=== PATIENT | male | born 1995 | race Asian ===

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

== ENCOUNTER 2018-11-09 13:01 | Emergency (ER) | payer OTHER ==
[2018-11-09] MEDS ORDERED: Silver Sulfadiazine 1%* 20 GM TOPICAL ONE (15:20)
[2018-11-09 16:10] VITALS: BP 129/63
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
== END 2018-11-09 15:54 | disposition home or self-care (01) ==
LOC: ED 13:01
DX: T23.231A Burn of second degree of multiple right fingers (nail), not including thumb, initial encounter (principal); X19.XXXA Contact with other heat and hot substances, initial encounter; Y92.9 Unspecified place or not applicable
CPT/HCPCS: 99282; A9270-GY

== ENCOUNTER 2018-11-22 22:06 | Emergency (ER) | payer OTHER ==
[2018-11-22] MEDS ORDERED: Ondansetron ODT TAB* 4 MG PO ONE (22:24)
[2018-11-22] MEDS ORDERED: NS 0.9% 1000 ML** 1,000 ML IV ONE (22:48)
[2018-11-22] MEDS ORDERED: Ondansetron INJ* 2 MG/ML VIAL IV ONE (23:04)
--- NOTE | 2018-11-22 23:46 | ED ---
Substance Abuse/Use - HPI Summary HPI Summary: Patient presents with alcohol intoxication nausea vomiting and headache. Friend 's of patient state patient had unwitnessed fall, head injury unknown. Patient alert and oriented, slightly slurred speech. Denies any other symptoms. No anti-coag. Medical history is none. - History Of Current Complaint Chief Complaint: EDNauseaVomitDiarrh Stated Complaint: DEHYDRATION PER PT Time Seen by Provider: 11/22/18 22:21 Hx Obtained From: Patient, Family/Hardwood Floor Installation Helper Onset/Duration of Drug/ETOH Abuse: Hours Severity Initially: Moderate Severity Currently: Mild Aggravating Factor(s): Nothing Alleviating Factor(s): Nothing Associated Signs And Symptoms: Nausea, Vomiting - Allergies/Home Medications Allergies/Adverse Reactions: Allergies Allergy/AdvReac Type Severity Reaction Status Date / Time No Known Allergies Allergy Verified 11/22/18 22:09 Home Medications: Home Medications Levothyroxine TAB* [Synthroid TAB*] 50 mcg PO DAILY 11/22/18 [History Confirmed 11/22/18] PMH/Surg Hx/FS Hx/Imm Hx Endocrine/Hematology History: Denies: Hx Anticoagulant Therapy Cardiovascular History: Denies: Hx Pacemaker/ICD History: Denies: Hx Dialysis Sensory History: Denies: Hx Eye Prosthesis Opthamlomology History: Denies: Hx Legally Blind EENT History: Denies: Hx Deafness Neurological History: Denies: Hx Dementia Infectious Disease History: No Infectious Disease History: Denies: Traveled Outside the [place] in Last 30 Days - Family History Known Family History: Positive: Non-Contributory - Social History Alcohol Use: Weekly Hx Substance Use: No Substance Use Type: Reports: None Hx Tobacco Use: No Smoking Status (MU): Never Smoked Tobacco Review of Systems Constitutional: Negative Eyes: Negative ENT: Negative Cardiovascular: Negative Respiratory: Negative Positive: Vomiting, Nausea Genitourinary: Negative Musculoskeletal: Negative Skin: Negative Positive: Headache Psychological: Normal All Other Systems Reviewed And Are Negative: Yes Physical Exam - Summary Physical Exam Summary: Patient is alert and oriented, slightly slurred speech consistent with intoxication. No evidence of trauma to face, mouth, head. Full range of motion of jaw and neck. No pain with palpation of neck, face, back, chest wall , abdomen. Patient was also extremities freely. Triage Information Reviewed: Yes Vital Signs On Initial Exam: Initial Vitals Temp Pulse Resp BP Pulse Ox 97.9 F 89 16 137/97 98 11/22/18 22:07 11/22/18 22:07 11/22/18 22:07 11/22/18 22:07 11/22/18 22:07 Vital Signs Reviewed: Yes Appearance: Positive: Well-Appearing Skin: Positive: Warm Head/Face: Positive: Normal Head/Face Inspection Eyes: Positive: Normal ENT: Positive: Normal ENT inspection Dental: Negative: Dental Fracture @, Bleeding Neck: Positive: Supple Respiratory/Lung Sounds: Positive: Clear to Auscultation Cardiovascular: Positive: Normal Abdomen Description: Positive: Nontender Musculoskeletal: Positive: Normal Neurological: Positive: Normal Psychiatric: Positive: Normal AVPU Assessment: Alert - [place] Coma Scale Best Eye Response: 4 - Spontaneous Best Motor Response: 6 - Obeys Commands Best Verbal Response: 5 - Oriented Coma Scale Total: 15 Procedures - Sedation Patient Received Moderate/Deep Sedation with Procedure: No Diagnostics - Vital Signs Vital Signs Temp Pulse Resp BP Pulse Ox 11/22/18 22:20 78 96 11/22/18 22:19 77 141/96 96 11/22/18 22:07 97.9 F 89 16 137/97 98 - Laboratory Lab Statement: Any lab studies that have been ordered have been reviewed, and results considered in the medical decision making process. Course/Dx - Course Course Of Treatment: Patient presents with alcohol intoxication nausea vomiting and headache. Friend's of patient state patient had unwitnessed fall, head injury unknown. Patient alert and oriented, slightly slurred speech. Denies any other symptoms. No anti-coag. Medical history is none. Vital signs within normal limits. CT brain negative. 1 L normal saline and Zofran administered. When patient was ambulatory and clinically sober, patient discharged into custody of his sober friends. - Diagnoses Provider Diagnoses: Alcohol intoxication, Nausea & vomiting, Fall Discharge ED - Sign-Out/Discharge Documenting (check all that apply): Patient Departure - Discharge Plan Condition: Stable Disposition: HOME Patient Education Materials: Alcohol Intoxication (ED), Acute Nausea and Vomiting (ED) Referrals: [facility] - Stephan FOSTER [Primary Care Provider] - Additional Instructions: Drink plenty of fluids to maintain hydration. Return to the ED for any new or worsening symptoms. - Billing Disposition and Condition Condition: STABLE Disposition: Home
[2018-11-23 00:29] VITALS: BP 97/44
== END 2018-11-23 00:29 | disposition home or self-care (01) ==
LOC: ED 22:06
DX: F10.929 Alcohol use, unspecified with intoxication, unspecified (principal); R11.2 Nausea with vomiting, unspecified; W19.XXXA Unspecified fall, initial encounter; Y92.9 Unspecified place or not applicable; Z79.890 Hormone replacement therapy
CPT/HCPCS: 70450; 96361; 96374; 99282; J2405

== ENCOUNTER 2019-01-24 00:15 | Emergency (ER) | payer OTHER ==
[2019-01-24] MEDS ORDERED: NS 0.9% 1000 ML** 1,000 ML IV ONE (01:18)
[2019-01-24] MEDS ORDERED: Pantoprazole IV* 40 MG IV ONE (01:19)
[2019-01-24] MEDS ORDERED: Ondansetron INJ* 2 MG/ML VIAL IV ONE (01:19)
[2019-01-24 01:39] LABS: ABS Eosinophils 0.1 10^3/ul (0-0.6); ABS Lymphocytes 1.9 10^3/ul (1.0-4.8); ABS Monocytes 0.6 10^3/ul (0-0.8); ABS Neutrophils 7.6 10^3/ul (1.5-7.7); Eosinophil % 0.6 %; Hematocrit 48 % (42-52); Hemoglobin 16.6 g/dL (14.0-18.0); Lymphocyte % 18.9 %; Mean Corpuscular HGB Conc 35 g/dL (31-36); Mean Corpuscular Hemoglobin 33 pg (27-31); Mean Corpuscular Volume 94 fL (80-94); Mean Platelet Volume 7.6 fL (7.4-10.4); Nucleated Red Blood Cells % 0.1; Platelet Count 338 10^3/uL (150-450); Red Blood Count 5.08 10^6 /uL (4.18-5.48); Red Cell Distribution Width 13 % (10-15); White Blood Count 10.3 10^3/uL (3.5-10.8)
[2019-01-24 01:55] LABS: ALT 18 U/L (7-52); AST 18 U/L (13-39); Albumin 4.7 g/dL (3.2-5.2); Albumin/Globulin Ratio 1.7 (1-3); Alkaline Phosphatase 61 U/L (34-104); Anion Gap 10 mmol/L (2-11); BUN/Creatinine Ratio 11.8 (8-20); Blood Urea Nitrogen 14 mg/dL (6-24); CO2 Carbon Dioxide 24 mmol/L (22-32); Calcium 9.2 mg/dL (8.6-10.3); Chloride 103 mmol/L (101-111); EGFR African American 93.4 (>60); EGFR Non-African American 77.2 (>60); Globulin 2.7 g/dL (2-4); Glucose 103 mg/dL (70-100); Potassium 3.5 mmol/L (3.5-5.0); Sodium 137 mmol/L (135-145); Total Protein 7.4 g/dL (6.4-8.9)
[2019-01-24 02:04] LABS: Acetaminophen < 15 mcg/mL; Alcohol 242 mg/dL (<10); Salicylate < 2.50 mg/dL (<30)
--- NOTE | 2019-01-24 02:21 | ED ---
Substance Abuse/Use - HPI Summary HPI Summary: This pt is a 23 Y/O M brought to [facility] by his friends for acute alcohol intoxication. Pt is currently a level 5 caveat due to his level of intoxication. Upon arrival he is vomiting but able to converse in slurred speech. His friends deny any drug use. 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, [employer]IN[employer] SALESPERSON - Allergies/Home Medications Allergies/Adverse Reactions: Allergies Allergy/AdvReac Type Severity Reaction Status Date / Time No Known Allergies Allergy Verified 11/22/18 22:09 PMH/Surg Hx/FS Hx/Imm Hx Previously Healthy: Yes - Pt is a level 5 caveat due to his level of intoxication Endocrine/Hematology History: Denies: Hx Anticoagulant Therapy Cardiovascular History: Denies: Hx Pacemaker/ICD History: Denies: Hx Dialysis Sensory History: Denies: Hx Eye Prosthesis, Hx Legally Blind, Hx Deafness Opthamlomology History: Denies: Hx Eye Prosthesis, Hx Legally Blind Neurological History: Denies: Hx Dementia - Cancer History Hx Chemotherapy: No Hx Radiation Therapy: No - Surgical History Surgical History: Unable to Obtain/Confirm - Immunization History Immunizations Up to Date: Unable to Obtain/Confirm Infectious Disease History: Unable to Obtain/Confirm Infectious Disease History: Denies: Traveled Outside the [place] in Last 30 Days - Family History Known Family History: Positive: Non-Contributory - Social History Occupation: Student - [employer] Lives: Dormitory/Roommates Alcohol Use: Weekly Hx Substance Use: No Substance Use Type: Reports: None Hx Tobacco Use: No Smoking Status (MU): Never Smoked Tobacco Review of Systems - ROS Summary Review of Systems Summary: Pt is a level 5 caveat due to his level of intoxication Positive: Vomiting All Other Systems Reviewed And Are Negative: No Physical Exam - Summary Physical Exam Summary: General: Well-developed, obese male who is lethargic. No acute distress. Slurring his words, emesis on his clothes. HEENT: Normocephalic, Atraumatic. Eyes: Conjuctiva normal, PERRL. Ears: TMs within normal limits. Nares: (-) discharge, (-) erythema. Oropharynx: Clear, mucous membranes moist, (-) exudates. Neck: Soft, FROM, (-) lymphadenopathy, (-) thyromegaly, (-) JVD. Cardiovascular: Normal sinus rhythm, (-) murmur. Lungs: Clear to auscultation bilaterally (-) wheezes, (-) rales, (-) rhonchi. Abdomen: Soft, non-tender, non-distended, (-) organomegaly, normal bowel sounds. Back: (-) CVA tenderness Extremities: No edema. Skin: Warm, dry, (-) rash. Neuro: Alert and oriented x3, no focal deficits. Psychiatric: Mood normal, affect normal. Triage Information Reviewed: Yes Vital Signs On Initial Exam: Initial Vitals Temp Pulse Resp BP Pulse Ox 96.2 F 102 16 114/95 95 01/24/19 00:15 01/24/19 00:15 01/24/19 00:15 01/24/19 00:15 01/24/19 00:15 Vital Signs Reviewed: Yes Completion Of Physical Exam Limited Due To: Level 5 - due to level of intoxication Procedures - Sedation Patient Received Moderate/Deep Sedation with Procedure: No Diagnostics - Vital Signs Vital Signs Temp Pulse Resp BP Pulse Ox 01/24/19 01:07 81 24 97/54 87 01/24/19 01:00 80 19 96 01/24/19 00:37 85 22 109/70 93 01/24/19 00:35 85 25 94 01/24/19 00:15 96.2 F 102 16 114/95 95 - Laboratory Lab Results: Lab Results 01/24/19 01/24/19 01/24/19 Range/Units 01:33 01:33 01:33 WBC 10.3 (3.5-10.8) 10^3/uL RBC 5.08 (4.18-5.48) 10^6 /uL Hgb 16.6 (14.0-18.0) g/dL Hct 48 (42-52) % MCV 94 (80-94) fL MCH 33 H (27-31) pg MCHC 35 (31-36) g/dL RDW 13 (10-15) % Plt Count 338 (150-450) 10^3/uL MPV 7.6 (7.4-10.4) fL Neut % (Auto) 74.0 % Lymph % (Auto) 18.9 % [place] % (Auto) 6.0 % Eos % (Auto) 0.6 % Baso % (Auto) 0.5 % Absolute Neuts (auto) 7.6 (1.5-7.7) 10^3/ul Absolute Lymphs (auto) 1.9 (1.0-4.8) 10^3/ul Absolute Monos (auto) 0.6 (0-0.8) 10^3/ul Absolute Eos (auto) 0.1 (0-0.6) 10^3/ul Absolute Basos (auto) 0.0 (0-0.2) 10^3/ul Absolute Nucleated RBC 0.0 10^3/ul Nucleated RBC % 0.1 Sodium 137 (135-145) mmol/L Potassium 3.5 (3.5-5.0) mmol/L Chloride 103 (101-111) mmol/L Carbon Dioxide 24 (22-32) mmol/L Anion Gap 10 (2-11) mmol/L BUN 14 (6-24) mg/dL Creatinine 1.19 H (0.67-1.17) mg/dL Est GFR ( Amer) 93.4 (>60) Est GFR (Non-Af Amer) 77.2 (>60) BUN/Creatinine Ratio 11.8 (8-20) Glucose 103 H (70-100) mg/dL Lactic Acid 2.0 (0.5-2.0) mmol/L Calcium 9.2 (8.6-10.3) mg/dL Total Bilirubin 0.50 (0.2-1.0) mg/dL AST 18 (13-39) U/L ALT 18 (7-52) U/L Alkaline Phosphatase 61 (34-104) U/L Total Protein 7.4 (6.4-8.9) g/dL Albumin 4.7 (3.2-5.2) g/dL Globulin 2.7 (2-4) g/dL Albumin/Globulin Ratio 1.7 (1-3) Salicylates < 2.50 (<30) mg/dL Acetaminophen < 15 mcg/mL Serum Alcohol 242 H (<10) mg/dL Result Diagrams: 01/24/19 01:33 01/24/19 01:33 Lab Statement: Any lab studies that have been ordered have been reviewed, and results considered in the medical decision making process. Course/Dx - Course Course Of Treatment: This pt is a sign out to Dr. Fisher from Dr. Deleon at shift change 0700 01/24/19 pending sobriety. - Diagnoses Provider Diagnoses: Acute alcohol intoxication, Vomiting Discharge ED - Sign-Out/Discharge Documenting (check all that apply): Sign-Out Patient Signing out patient TO: Brian Fisher - Discharge Plan Condition: Stable Disposition: HOME Patient Education Materials: Alcohol Intoxication (ED), Acute Nausea and Vomiting (ED) Referrals: [facility] - MRSte[facility] [Primary Care Provider] - 2 Days Additional Instructions: PLEASE FOLLOW UP WITH [facility] IN 1-3 DAYS AND RETURN TO THE EMERGENCY DEPARTMENT FOR ANY NEW OR WORSENING SYMPTOMS. - Billing Disposition and Condition Condition: STABLE Disposition: Home - Attestation Statements Document Initiated by Scribe: Yes Documenting Scribe: Aung Gross Provider For Whom Scribe is Documenting (Include Credential): Anitha Deleon MD Scribe Attestation: Aung Gunderson, scribed for Anitha Deleon MD on 01/24/19 at 1929. Scribe Documentation Reviewed: Yes Provider Attestation: The documentation as recorded by the Aung cooper accurately reflects the service I personally performed and the decisions made by Anitha arora MD Status of Scribe Document: Viewed
[2019-01-24 04:31] LABS: Urine Appearance Clear; Urine Bilirubin Negative (Negative); Urine Blood Negative (Negative); Urine Color Straw; Urine Glucose Negative (Negative); Urine Ketones Negative (Negative); Urine Nitrite Negative (Negative); Urine Protein Negative (Negative); Urine Specific Gravity 1.004 (1.010-1.030); Urine Urobilinogen Negative (Negative)
[2019-01-24 04:48] LABS: Urine Benzodiazepine Screen None Detected (None Detect); Urine Opiates Screen None Detected (None Detect)
--- NOTE | 2019-01-24 07:19 | ED ---
Progress - Progress Note Progress Note: This pt is a sign out to Dr. Fisher from Dr. Deleon at shift change 0700 01/24/19 pending sobriety. Course/Dx - Course Course Of Treatment: This pt is a sign out to Dr. Fisher from Dr. Deleon at shift change 0700 01/24/19 pending sobriety. . At 7:30 AM the patient is alert and oriented, he is ambulating with a good steady walk, he is drinking fluids without any nausea and vomiting. This patient's roommate and friend came and will take him home. The patient is hemodynamically stable. - Diagnoses Provider Diagnoses: Acute alcohol intoxication, Vomiting Discharge ED - Sign-Out/Discharge Documenting (check all that apply): Patient Departure - discharge - Discharge Plan Condition: Stable Disposition: HOME Patient Education Materials: Alcohol Intoxication (ED), Acute Nausea and Vomiting (ED) Referrals: [facility] - Stephan FOSTER [Primary Care Provider] - 2 Days Additional Instructions: PLEASE FOLLOW UP WITH [facility] [place] IN 1-3 DAYS AND RETURN TO THE EMERGENCY DEPARTMENT FOR ANY NEW OR WORSENING SYMPTOMS. - Billing Disposition and Condition Condition: STABLE Disposition: Home - Attestation Statements Document Initiated by Scribe: Yes Documenting Scribe: Lorena Carson Provider For Whom Joesph is Documenting (Include Credential): Dr. Brian Fisher MD Scribe Attestation: ILorena, scribed for Dr. Brian Fisher MD on 01/25/19 at 1853. Scribe Documentation Reviewed: Yes Provider Attestation: The documentation as recorded by the Lorena cooper accurately reflects the service I personally performed and the decisions made by me, Dr. Brian Fisher MD Status of Scribe Document: Viewed
[2019-01-24 07:30] VITALS: BP 150/84
== END 2019-01-24 07:31 | disposition home or self-care (01) ==
LOC: ED 00:15
DX: F10.929 Alcohol use, unspecified with intoxication, unspecified (principal); R11.10 Vomiting, unspecified
CPT/HCPCS: 36415; 80053; 80307; 80320; 80329; 81003; 83605; 85025; 96361; 96374; 96375; 99283; G0480; J2405